=== PATIENT | female | born 1975 | race Two or more races ===

== ENCOUNTER 2021-12-26 22:41 | Emergency (ER) | payer OTHER ==
[~2021-12-26] VITALS: Ht 170.2 cm; Wt 86.2 kg
[2021-12-26] MEDS ORDERED: [UNRECOGNIZED DRUG - OTHER] (23:04)
== END 2021-12-27 08:16 ==
LOC: ER 22:41
DX: N93.9 Abnormal uterine and vaginal bleeding, unspecified (principal)

== ENCOUNTER 2022-03-17 10:00 | Inpatient (IN) | payer OTHER ==
[~2022-03-17] VITALS: Ht 170.2 cm; Wt 86.2 kg
[~2022-03-17 10:00] MED LIST: [UNRECOGNIZED DRUG - OTHER]
[2022-03-17] MEDS ORDERED: MAXFE PO (12:42)
[2022-03-17] MEDS ORDERED: MEGASE PO (12:42)
[2022-03-21] MEDS ORDERED: MEGESTROL ACETA20 MG (08:07)
[2022-03-21] MEDS ORDERED: CRYSELLE-28 TA1 EACH (08:09)
[2022-03-25] MEDS ORDERED: DOCUSATE SODIU100 MG PO (08:30)
[2022-03-25] MEDS ORDERED: SIMETHICONE125 M1 PO (08:30)
[2022-03-25] MEDS ORDERED: FERROUS SULFAT325 M1 PO (08:30)
[2022-03-25] MEDS ORDERED: IBUPROFEN800 MG PO (08:30)
== END 2022-03-25 11:10 | disposition home or self-care (01) | DRG 743 ==
LOC: OB/GYN 03-21 05:30 → O/R 03-21 05:30 → SURG 03-21 07:00 → OB/GYN 03-21 10:31 → SURG 03-21 11:10 → OB/GYN 03-25 11:10
PROVIDERS: Urology; ADMIT Obstetrics & Gynecology; ATTEND Obstetrics & Gynecology
PROC: 0US20ZZ Reposition Bilateral Ovaries, Open Approach (ICD-10-PCS; 2022-03-21)
PROC: 0T788DZ Dilation of Bilateral Ureters with Intraluminal Device, Via Natural or Artificial Opening Endoscopic (ICD-10-PCS; 2022-03-21)
PROC: 0UT90ZZ Resection of Uterus, Open Approach (ICD-10-PCS; principal; 2022-03-21 11:10)
PROC: 0UT70ZZ Resection of Bilateral Fallopian Tubes, Open Approach (ICD-10-PCS; 2022-03-21 11:10)
DX: D25.1 Intramural leiomyoma of uterus (principal); N72 Inflammatory disease of cervix uteri; N80.2 Endometriosis of fallopian tube; N80.0 Endometriosis of uterus; N73.6 Female pelvic peritoneal adhesions (postinfective); Z20.822 Contact with and (suspected) exposure to COVID-19